=== PATIENT | female | born 1940 | race Caucasian/White ===

== ENCOUNTER 2021-05-13 16:49 | Inpatient (IN) ==
[2021-05-13 22:42] LABS: Basophils % 0.2 % (0.0-0.8); Hemoglobin 13.5 GM/DL (12.0-16.0); Immature Granulocytes % 0.5 %; Immature Granulocytes Absolute 0.02 #; Lymphocytes # 0.7 10*3/uL (1.4-4.0); Lymphocytes % 17.4 % (21.3-54.2); Mean Corpuscular HGB Conc 32.9 GM/DL (32-36); Mean Corpuscular Volume 90.3 FL (87-102); Mean Platelet Volume 13.3 FL (9.6-12.0); Neutrophils % 73.9 % (38.7-73.9); Platelet Count 84 T/CUMM (130-400); Red Blood Count 4.54 MC/CUMM (3.8-5.5); Red Cell Distribution Width 13.2 % (9.3-17.3); White Blood Count 4.1 T/CUMM (4-12)
[2021-05-13 23:12] LABS: Albumin 3.7 G/DL (3.4-5.0); Bilirubin,Total 0.4 MG/DL (0.20-1.00); Calcium 9.4 MG/DL (8.5-10.1); Osmolality,Calculated 293.8 MOS/KG (273-304); Potassium 3.4 MMOL/L (3.5-5.1); Total Protein 7.9 G/DL (6.4-8.2)
[2021-05-13 23:13] LABS: Bilirubin,Urine Negative (Negative); Blood, Urine Negative (Negative); Glucose,Urine (UA) Negative (Negative); Hyaline Casts,Urine 42 /LPF (0-3); Ketones,Urine Negative (Negative); Mucus,Urine Occasional /LPF (Occasional); Nitrite,Urine Negative (Negative); Protein,Urine 30 MG/DL; RBC,Urine 6 /HPF (0-4); Squamous Epithelial Cell,Urine Occasional /HPF (0-10); Urine Appearance CLOUDY (Clear); Urine Color Amber (Yellow); Urine Specific Gravity 1.017 (1.001-1.035); Urine Urobilinogen < 2.0 EU/DL (0.2-1.0)
[2021-05-13] MEDS ORDERED: SODIUM CHLORIDE 0.9% 1,000 ML IV STA (23:30)
[2021-05-13] MEDS ORDERED: DEXAMETHASONE 4 MG/1 ML VIAL IV STA (23:32)
[2021-05-13] MEDS ORDERED: cefTRIAXone 1,000 MG in SODIUM CHLORIDE 0.9% 100 ML IV STA (23:32)
[2021-05-13] MEDS ORDERED: ACETAMINOPHEN 500 MG TABLET PO STA (23:32)
[2021-05-13 23:51] LABS: Platelet Estimate Adequate
[2021-05-14] MEDS ORDERED: AZITHROMYCIN INJ 500 MG in SODIUM CHLORIDE 0.9% 250 ML IV ONE (02:04)
[2021-05-14] MEDS ORDERED: GLUCAGON 1 MG VIAL IM PRN (02:16)
[2021-05-14] MEDS ORDERED: ONDANSETRON 4 MG/2 ML VIAL IV PRN (02:16)
[2021-05-14] MEDS ORDERED: DEXTROSE 50% 25 GM/50 ML VIAL IV PRN (02:16)
[2021-05-14] MEDS ORDERED: ACETAMINOPHEN 325 MG TABLET PO PRN (02:16)
[2021-05-14] MEDS ORDERED: MAGNESIUM SULF RIDER 2 GM/50 ML PREMIX IV PRN (02:19)
[2021-05-14] MEDS ORDERED: MAGNESIUM SULF RIDER 4 GM/100 ML PREMIX IV PRN (02:19)
[2021-05-14] MEDS ORDERED: HEPARIN 5,000 UNIT/1 ML VIAL SUBCUT SCH (02:30)
[2021-05-14] MEDS ORDERED: hydrALAZINE 20 MG/1 ML VIAL IV PRN (03:05)
[2021-05-14] MEDS: SODIUM CHLORIDE 0.9% 1,000 ML IV SCH ×4 (03:20→18:25)
[2021-05-14] MEDS: ALBUTEROL INHALER 18 GM INH SCH ×4 (06:22→18:26)
[2021-05-14] MEDS: LEVOTHYROXINE 125 MCG TABLET PO SCH (06:22)
[2021-05-14 07:06] LABS: Hematocrit 35.7 VOL% (35.7-47.0); Hemoglobin 11.6 GM/DL (12.0-16.0); Immature Granulocytes % 0.6 %; Immature Granulocytes Absolute 0.02 #; Lymphocytes # 0.5 10*3/uL (1.4-4.0); Lymphocytes % 15.7 % (21.3-54.2); Mean Corpuscular HGB Conc 32.5 GM/DL (32-36); Mean Corpuscular Volume 90.8 FL (87-102); Mean Platelet Volume 13.4 FL (9.6-12.0); Monocytes % 3.6 % (1.7-12.7); Neutrophils % 80.1 % (38.7-73.9); Platelet Count 71 T/CUMM (130-400); Red Blood Count 3.93 MC/CUMM (3.8-5.5); Red Cell Distribution Width 13.3 % (9.3-17.3); White Blood Count 3.3 T/CUMM (4-12)
[2021-05-14 07:15] LABS: PT Patient Result 11.2 SECS (10.5-12.0)
[2021-05-14 07:21] LABS: Calcium 8.7 MG/DL (8.5-10.1); Osmolality,Calculated 303.3 MOS/KG (273-304); Potassium 3.3 MMOL/L (3.5-5.1)
[2021-05-14 07:24] LABS: Ferritin 915.1 ng/ml (8-252)
[2021-05-14 07:44] LABS: Band Neutrophils 23 % (0-10); Lymphocytes 13 % (20-55); Platelet Estimate Decreased; Segmented Neutrophils 59 % (50-85); Total Cells Counted 100
[2021-05-14 07:45] LABS: Anisocytosis Slight; Burr Cells Few
[2021-05-14] MEDS ORDERED: ACEBUTOLOL 200 MG PO SCH (09:00)
[2021-05-14] MEDS ORDERED: CETIRIZINE 10 MG TABLET PO SCH (09:00)
[2021-05-14] MEDS: CHOLECALCIFEROL 1,000 UNIT TABLET PO SCH (09:24)
[2021-05-14] MEDS: ZINC GLUCONATE 50 MG TABLET PO SCH (09:24)
[2021-05-14] MEDS: POTASSIUM CHLORIDE 20 MEQ TABLET PO PRN ×3 (09:24→15:38)
[2021-05-14] MEDS: FAMOTIDINE 20 MG TABLET PO SCH ×2 (09:24→22:10)
[2021-05-14] MEDS: ASCORBIC ACID 500 MG TABLET PO SCH ×2 (09:24→22:10)
[2021-05-14] MEDS: CETIRIZINE 10 MG TABLET PO SCH (09:24)
[2021-05-14] MEDS: amLODIPine 5 MG TABLET PO SCH (09:25)
[2021-05-14] MEDS: DEXAMETHASONE 4 MG/1 ML VIAL IV SCH (09:25)
[2021-05-14] MEDS ORDERED: guaiFENesin/CODEINE 5 ML LIQUID PO PRN (17:53)
[2021-05-14] MEDS: guaiFENesin 200 MG/10 ML UDCUP PO PRN (18:29)
[2021-05-14] MEDS: cefTRIAXone 1,000 MG in SODIUM CHLORIDE 0.9% 100 ML IV SCH (22:30)
[2021-05-15] MEDS: ALBUTEROL INHALER 18 GM INH SCH ×4 (01:30→18:21)
[2021-05-15] MEDS: SODIUM CHLORIDE 0.9% 1,000 ML IV SCH ×4 (03:25→17:34)
[2021-05-15 05:57] LABS: Calcium 8.8 MG/DL (8.5-10.1); Osmolality,Calculated 303.8 MOS/KG (273-304); Potassium 4.1 MMOL/L (3.5-5.1)
[2021-05-15 06:04] LABS: Hematocrit 36.9 VOL% (35.7-47.0); Hemoglobin 11.5 GM/DL (12.0-16.0); Immature Granulocytes % 0.8 %; Immature Granulocytes Absolute 0.04 #; Lymphocytes # 0.4 10*3/uL (1.4-4.0); Lymphocytes % 7.9 % (21.3-54.2); Mean Corpuscular HGB Conc 31.2 GM/DL (32-36); Mean Corpuscular Volume 95.3 FL (87-102); Mean Platelet Volume 13.2 FL (9.6-12.0); Monocytes % 7.2 % (1.7-12.7); Neutrophils % 84.1 % (38.7-73.9); Platelet Count 76 T/CUMM (130-400); Red Blood Count 3.87 MC/CUMM (3.8-5.5); Red Cell Distribution Width 13.3 % (9.3-17.3); White Blood Count 5.3 T/CUMM (4-12)
[2021-05-15] MEDS: LEVOTHYROXINE 125 MCG TABLET PO SCH (06:20)
[2021-05-15] MEDS: ASCORBIC ACID 500 MG TABLET PO SCH ×2 (08:29→21:00)
[2021-05-15] MEDS: AZITHROMYCIN 250 MG TABLET PO SCH (08:30)
[2021-05-15] MEDS: amLODIPine 5 MG TABLET PO SCH (08:30)
[2021-05-15] MEDS: CHOLECALCIFEROL 1,000 UNIT TABLET PO SCH (08:30)
[2021-05-15] MEDS: FAMOTIDINE 20 MG TABLET PO SCH ×2 (08:30→21:00)
[2021-05-15] MEDS: ACEBUTOLOL 200 MG PO SCH (08:31)
[2021-05-15] MEDS: DEXAMETHASONE 4 MG/1 ML VIAL IV SCH (08:31)
[2021-05-15] MEDS: CETIRIZINE 10 MG TABLET PO SCH (08:31)
[2021-05-15] MEDS: ZINC GLUCONATE 50 MG TABLET PO SCH (08:31)
[2021-05-15] MEDS: guaiFENesin 200 MG/10 ML UDCUP PO PRN ×2 (08:32→23:25)
[2021-05-15 09:30] LABS: Burr Cells Few; Platelet Estimate Decreased
[2021-05-15] MEDS: BENZONATATE 100 MG CAPSULE PO PRN ×2 (10:11→17:17)
[2021-05-15] MEDS: cefTRIAXone 1,000 MG in SODIUM CHLORIDE 0.9% 100 ML IV SCH (23:10)
[2021-05-16] MEDS: ALBUTEROL INHALER 18 GM INH SCH ×5 (00:41→23:14)
[2021-05-16 03:19] LABS: Hematocrit 35.4 VOL% (35.7-47.0); Hemoglobin 11.6 GM/DL (12.0-16.0); Immature Granulocytes Absolute 0.07 #; Lymphocytes # 0.3 10*3/uL (1.4-4.0); Mean Corpuscular HGB Conc 32.8 GM/DL (32-36); Mean Corpuscular Volume 91.5 FL (87-102); Mean Platelet Volume 12.6 FL (9.6-12.0); Monocytes % 5.1 % (1.7-12.7); Neutrophils % 89.9 % (38.7-73.9); Platelet Count 91 T/CUMM (130-400); Red Blood Count 3.87 MC/CUMM (3.8-5.5); Red Cell Distribution Width 13.4 % (9.3-17.3); White Blood Count 7.3 T/CUMM (4-12)
[2021-05-16] MEDS: guaiFENesin 200 MG/10 ML UDCUP PO PRN (03:28)
[2021-05-16 03:40] LABS: Calcium 9.2 MG/DL (8.5-10.1); Osmolality,Calculated 299.6 MOS/KG (273-304); Potassium 4.1 MMOL/L (3.5-5.1)
[2021-05-16 05:03] LABS: Lymphocytes 4 % (20-55); Segmented Neutrophils 91 % (50-85); Total Cells Counted 100
[2021-05-16 05:04] LABS: Platelet Estimate Adequate
[2021-05-16] MEDS: LEVOTHYROXINE 125 MCG TABLET PO SCH (06:00)
[2021-05-16] MEDS: SODIUM CHLORIDE 0.9% 1,000 ML IV SCH ×3 (06:03→12:21)
[2021-05-16] MEDS: AZITHROMYCIN 250 MG TABLET PO SCH (08:50)
[2021-05-16] MEDS: CETIRIZINE 10 MG TABLET PO SCH (08:51)
[2021-05-16] MEDS: amLODIPine 5 MG TABLET PO SCH (08:51)
[2021-05-16] MEDS: ASCORBIC ACID 500 MG TABLET PO SCH ×2 (08:51→21:02)
[2021-05-16] MEDS: CHOLECALCIFEROL 1,000 UNIT TABLET PO SCH (08:51)
[2021-05-16] MEDS: FAMOTIDINE 20 MG TABLET PO SCH ×2 (08:51→21:02)
[2021-05-16] MEDS: ZINC GLUCONATE 50 MG TABLET PO SCH (08:51)
[2021-05-16] MEDS: ACEBUTOLOL 200 MG PO SCH (08:52)
[2021-05-16] MEDS: DEXAMETHASONE 4 MG/1 ML VIAL IV SCH (08:52)
[2021-05-16] MEDS: BENZONATATE 100 MG CAPSULE PO PRN ×2 (08:55→18:16)
[2021-05-16] MEDS: ENOXAPARIN 40 MG/0.4 ML SYRINGE SUBCUT SCH (18:16)
[2021-05-16] MEDS: cefTRIAXone 1,000 MG in SODIUM CHLORIDE 0.9% 100 ML IV SCH (23:13)
[2021-05-17] MEDS: ALBUTEROL INHALER 18 GM INH SCH ×6 (03:00→22:01)
[2021-05-17] MEDS: LEVOTHYROXINE 125 MCG TABLET PO SCH (05:36)
[2021-05-17 06:19] LABS: Basophils % 0.1 % (0.0-0.8); Hematocrit 36.9 VOL% (35.7-47.0); Hemoglobin 12.4 GM/DL (12.0-16.0); Immature Granulocytes % 1.8 %; Immature Granulocytes Absolute 0.16 #; Lymphocytes # 0.3 10*3/uL (1.4-4.0); Lymphocytes % 3.7 % (21.3-54.2); Mean Corpuscular HGB Conc 33.6 GM/DL (32-36); Mean Corpuscular Volume 88.5 FL (87-102); Monocytes % 4.1 % (1.7-12.7); Neutrophils % 90.3 % (38.7-73.9); Platelet Count 108 T/CUMM (130-400); Red Blood Count 4.17 MC/CUMM (3.8-5.5); Red Cell Distribution Width 13.4 % (9.3-17.3); White Blood Count 9.1 T/CUMM (4-12)
[2021-05-17 06:41] LABS: Band Neutrophils 1 % (0-10); Hypochromasia Slight; Lymphocytes 3 % (20-55); Segmented Neutrophils 91 % (50-85); Total Cells Counted 100
[2021-05-17 06:42] LABS: Microcytosis 1+; Ovalocytes Slight; Platelet Estimate Decreased
[2021-05-17 06:48] LABS: Alanine Aminotransferase 33 U/L (13-56); Albumin 2.7 G/DL (3.4-5.0); Alkaline Phosphatase 77 U/L (45-117); Aspartate Amino Transferase 29 U/L (0-37); Bilirubin,Direct < 0.100 MG/DL (0.0-0.20); Bilirubin,Indirect 0.3 MG/DL (0.0-1.0); Total Protein 6.9 G/DL (6.4-8.2)
[2021-05-17 06:53] LABS: Calcium 9.3 MG/DL (8.5-10.1); Ferritin 1318.6 ng/ml (8-252); Osmolality,Calculated 294.6 MOS/KG (273-304); Potassium 3.4 MMOL/L (3.5-5.1)
[2021-05-17] MEDS: CETIRIZINE 10 MG TABLET PO SCH (08:42)
[2021-05-17] MEDS: ZINC GLUCONATE 50 MG TABLET PO SCH (08:42)
[2021-05-17] MEDS: CHOLECALCIFEROL 1,000 UNIT TABLET PO SCH (08:42)
[2021-05-17] MEDS: FAMOTIDINE 20 MG TABLET PO SCH ×2 (08:42→21:19)
[2021-05-17] MEDS: ASCORBIC ACID 500 MG TABLET PO SCH ×2 (08:42→21:19)
[2021-05-17] MEDS: AZITHROMYCIN 250 MG TABLET PO SCH (08:42)
[2021-05-17] MEDS: amLODIPine 5 MG TABLET PO SCH (08:42)
[2021-05-17] MEDS: ACEBUTOLOL 200 MG PO SCH (08:43)
[2021-05-17] MEDS: DEXAMETHASONE 4 MG/1 ML VIAL IV SCH (08:43)
[2021-05-17] MEDS ORDERED: REMDESIVIR 200 MG in SODIUM CHLORIDE 0.9% 210 ML IV ONE (12:00)
[2021-05-17] MEDS: ENOXAPARIN 40 MG/0.4 ML SYRINGE SUBCUT SCH (17:33)
[2021-05-17] MEDS: ALPRAZolam 0.25 MG TABLET PO PRN ×2 (17:33→21:19)
[2021-05-17] MEDS: guaiFENesin 200 MG/10 ML UDCUP PO PRN (21:19)
[2021-05-17] MEDS: cefTRIAXone 1,000 MG in SODIUM CHLORIDE 0.9% 100 ML IV SCH (22:01)
[2021-05-17] MEDS ORDERED: LORazepam 2 MG/1 ML VIAL IV ONE (22:17)
[2021-05-17] MEDS ORDERED: OLANZapine 10 MG VIAL IM ONE (23:33)
[2021-05-18] MEDS ORDERED: ETOMIDATE 20 MG/10 ML VIAL IV ONE ×2 (00:28→00:36)
[2021-05-18] MEDS ORDERED: VECURONIUM 10 MG VIAL IV ONE (00:28)
[2021-05-18] MEDS ORDERED: ROCURONIUM 100 MG/10 ML VIAL IV ONE (00:28)
[2021-05-18] MEDS ORDERED: MIDAZOLAM 10 MG/2 ML VIAL ONE (00:35)
[2021-05-18] MEDS ORDERED: MIDAZOLAM 10 MG/2 ML VIAL IM ONE (00:35)
[2021-05-18 03:00] LABS: ABG Base Excess -3.1 MMOL/L (-2.5-2.5); ABG HCO3 21.8 MMOL/L (20-26); ABG Oxygen Saturation 99.1 % (95-100); ABG PCO2 39.9 MM HG (35-48); ABG PH 7.353 (7.35-7.45); ABG TCO2 19.9 MMOL/L (23-27)
[2021-05-18 05:23] LABS: Basophils % 0.1 % (0.0-0.8); Hematocrit 33.3 VOL% (35.7-47.0); Hemoglobin 11.2 GM/DL (12.0-16.0); Immature Granulocytes % 2.1 %; Immature Granulocytes Absolute 0.17 #; Lymphocytes # 0.4 10*3/uL (1.4-4.0); Lymphocytes % 4.7 % (21.3-54.2); Mean Corpuscular HGB Conc 33.6 GM/DL (32-36); Mean Corpuscular Volume 89.5 FL (87-102); Mean Platelet Volume 11.4 FL (9.6-12.0); Monocytes % 3.9 % (1.7-12.7); Neutrophils % 89.2 % (38.7-73.9); Platelet Count 116 T/CUMM (130-400); Red Blood Count 3.72 MC/CUMM (3.8-5.5); Red Cell Distribution Width 13.6 % (9.3-17.3); White Blood Count 8.2 T/CUMM (4-12)
[2021-05-18 05:46] LABS: Lymphocytes 8 % (20-55); Segmented Neutrophils 88 % (50-85); Total Cells Counted 100
[2021-05-18 05:47] LABS: Hypochromasia 1+; Microcytosis 1+; Platelet Estimate Decreased
[2021-05-18 05:50] LABS: Calcium 8.7 MG/DL (8.5-10.1); Osmolality,Calculated 300.4 MOS/KG (273-304); Potassium 3.4 MMOL/L (3.5-5.1)
[2021-05-18] MEDS: LEVOTHYROXINE 125 MCG TABLET PO SCH (06:23)
[2021-05-18] MEDS: ALBUTEROL INHALER 18 GM INH SCH ×6 (07:08→22:32)
[2021-05-18] MEDS: amLODIPine 5 MG TABLET PO SCH ×2 (09:08→09:09)
[2021-05-18] MEDS: FAMOTIDINE 20 MG TABLET PO SCH ×2 (09:09→20:48)
[2021-05-18] MEDS: ASCORBIC ACID 500 MG TABLET PO SCH ×2 (09:09→20:48)
[2021-05-18] MEDS: ZINC GLUCONATE 50 MG TABLET PO SCH (09:09)
[2021-05-18] MEDS: AZITHROMYCIN 250 MG TABLET PO SCH (09:09)
[2021-05-18] MEDS: CETIRIZINE 10 MG TABLET PO SCH (09:09)
[2021-05-18] MEDS: ACEBUTOLOL 200 MG PO SCH (09:09)
[2021-05-18] MEDS: DEXAMETHASONE 4 MG/1 ML VIAL IV SCH (09:09)
[2021-05-18] MEDS: CHOLECALCIFEROL 1,000 UNIT TABLET PO SCH (09:09)
[2021-05-18] MEDS ORDERED: AZITHROMYCIN INJ 500 MG in SODIUM CHLORIDE 0.9% 250 ML IV ONE (09:48)
[2021-05-18] MEDS: POTASSIUM BICARB EFFERVESCENT 20 MEQ TAB.EFF PO PRN ×2 (11:04→14:00)
[2021-05-18] MEDS: REMDESIVIR 100 MG in SODIUM CHLORIDE 0.9% 100 ML IV SCH (11:04)
[2021-05-18] MEDS: ENOXAPARIN 60 MG/0.6 ML SYRINGE SUBCUT SCH ×2 (11:04→21:09)
[2021-05-18] MEDS: MIDAZOLAM 100 MG in SODIUM CHLORIDE 0.9% 80 ML IV PRN ×2 (13:26→23:56)
[2021-05-18] MEDS ORDERED: ALPRAZolam 0.5 MG TABLET PO PRN (16:37)
[2021-05-18] MEDS: INSULIN LISPRO 100 UNIT/ML SUBCUT SCH ×2 (17:56→23:57)
[2021-05-18] MEDS: cefTRIAXone 1,000 MG in SODIUM CHLORIDE 0.9% 100 ML IV SCH (22:28)
[2021-05-19] MEDS: ALBUTEROL INHALER 18 GM INH SCH ×6 (03:06→23:03)
[2021-05-19 04:39] LABS: Basophils % 0.3 % (0.0-0.8); Hemoglobin 10.9 GM/DL (12.0-16.0); Immature Granulocytes % 2.2 %; Immature Granulocytes Absolute 0.17 #; Lymphocytes # 0.5 10*3/uL (1.4-4.0); Lymphocytes % 5.7 % (21.3-54.2); Mean Corpuscular HGB Conc 32.1 GM/DL (32-36); Mean Corpuscular Volume 92.1 FL (87-102); Mean Platelet Volume 11.9 FL (9.6-12.0); Monocytes % 3.6 % (1.7-12.7); Neutrophils % 88.2 % (38.7-73.9); Platelet Count 111 T/CUMM (130-400); Red Blood Count 3.69 MC/CUMM (3.8-5.5); White Blood Count 7.9 T/CUMM (4-12)
[2021-05-19 05:00] LABS: Calcium 8.8 MG/DL (8.5-10.1); Ferritin 1375.2 ng/ml (8-252); Potassium 3.6 MMOL/L (3.5-5.1)
[2021-05-19] MEDS: INSULIN LISPRO 100 UNIT/ML SUBCUT SCH ×3 (05:24→18:36)
[2021-05-19 05:25] LABS: ABG Base Excess -0.7 MMOL/L (-2.5-2.5); ABG HCO3 23.9 MMOL/L (20-26); ABG Oxygen Saturation 98.6 % (95-100); ABG PCO2 42.8 MM HG (35-48); ABG PH 7.369 (7.35-7.45); ABG TCO2 22.3 MMOL/L (23-27)
[2021-05-19] MEDS: LEVOTHYROXINE 125 MCG TABLET PO SCH (06:06)
[2021-05-19] MEDS: ASCORBIC ACID 500 MG TABLET PO SCH ×2 (08:17→20:43)
[2021-05-19] MEDS: DEXAMETHASONE 4 MG/1 ML VIAL IV SCH (08:17)
[2021-05-19] MEDS: ZINC GLUCONATE 50 MG TABLET PO SCH (08:18)
[2021-05-19] MEDS: CHOLECALCIFEROL 1,000 UNIT TABLET PO SCH (08:18)
[2021-05-19] MEDS: ACEBUTOLOL 200 MG PO SCH (08:20)
[2021-05-19] MEDS: amLODIPine 5 MG TABLET PO SCH (08:21)
[2021-05-19] MEDS: CETIRIZINE 10 MG TABLET PO SCH (08:21)
[2021-05-19] MEDS: REMDESIVIR 100 MG in SODIUM CHLORIDE 0.9% 100 ML IV SCH (08:23)
[2021-05-19] MEDS: FAMOTIDINE 20 MG TABLET PO SCH ×2 (08:25→20:43)
[2021-05-19] MEDS: ENOXAPARIN 60 MG/0.6 ML SYRINGE SUBCUT SCH ×2 (09:51→21:11)
[2021-05-19] MEDS ORDERED: AZITHROMYCIN INJ 250 MG in SODIUM CHLORIDE 0.9% 250 ML IV SCH (10:00)
[2021-05-19] MEDS ORDERED: FUROSEMIDE 40 MG/4 ML VIAL IV ONE (10:29)
[2021-05-19] MEDS: cefTRIAXone 1,000 MG in SODIUM CHLORIDE 0.9% 100 ML IV SCH (23:03)
[2021-05-20] MEDS: INSULIN LISPRO 100 UNIT/ML SUBCUT SCH ×5 (00:28→23:54)
[2021-05-20] MEDS: ALBUTEROL INHALER 18 GM INH SCH ×6 (03:15→23:58)
[2021-05-20 04:40] LABS: ABG Base Excess 0.2 MMOL/L (-2.5-2.5); ABG HCO3 24.1 MMOL/L (20-26); ABG Oxygen Saturation 95.8 % (95-100); ABG PCO2 36.6 MM HG (35-48); ABG PH 7.436 (7.35-7.45); ABG PO2 80.4 MM HG (80-95); ABG TCO2 25.2 MMOL/L (23-27)
[2021-05-20] MEDS: LEVOTHYROXINE 125 MCG TABLET PO SCH (05:50)
[2021-05-20 06:28] LABS: Basophils % 0.1 % (0.0-0.8); Hematocrit 33.6 VOL% (35.7-47.0); Hemoglobin 11.1 GM/DL (12.0-16.0); Immature Granulocytes % 4.8 %; Immature Granulocytes Absolute 0.37 #; Lymphocytes # 0.4 10*3/uL (1.4-4.0); Lymphocytes % 4.9 % (21.3-54.2); Mean Corpuscular Volume 89.6 FL (87-102); Monocytes % 3.3 % (1.7-12.7); Neutrophils % 86.9 % (38.7-73.9); Platelet Count 122 T/CUMM (130-400); Red Blood Count 3.75 MC/CUMM (3.8-5.5); Red Cell Distribution Width 13.7 % (9.3-17.3); White Blood Count 7.8 T/CUMM (4-12)
[2021-05-20 06:46] LABS: Band Neutrophils 1 % (0-10); Hypochromasia Slight; Lymphocytes 3 % (20-55); Microcytosis Slight; Segmented Neutrophils 94 % (50-85); Total Cells Counted 100
[2021-05-20 06:51] LABS: Calcium 8.4 MG/DL (8.5-10.1); Ferritin 976.1 ng/ml (8-252); Osmolality,Calculated 308.4 MOS/KG (273-304); Potassium 3.5 MMOL/L (3.5-5.1)
[2021-05-20] MEDS: CETIRIZINE 10 MG TABLET PO SCH (08:04)
[2021-05-20] MEDS: ASCORBIC ACID 500 MG TABLET PO SCH ×2 (08:04→20:52)
[2021-05-20] MEDS: ZINC GLUCONATE 50 MG TABLET PO SCH (08:04)
[2021-05-20] MEDS: DEXAMETHASONE 4 MG/1 ML VIAL IV SCH (08:04)
[2021-05-20] MEDS: FAMOTIDINE 20 MG TABLET PO SCH ×2 (08:04→20:52)
[2021-05-20] MEDS: CHOLECALCIFEROL 1,000 UNIT TABLET PO SCH (08:05)
[2021-05-20] MEDS: ENOXAPARIN 60 MG/0.6 ML SYRINGE SUBCUT SCH ×2 (10:04→21:40)
[2021-05-20] MEDS: REMDESIVIR 100 MG in SODIUM CHLORIDE 0.9% 100 ML IV SCH (10:54)
[2021-05-20] MEDS: ACEBUTOLOL 200 MG PO SCH (11:00)
[2021-05-20] MEDS: amLODIPine 5 MG TABLET PO SCH (11:00)
[2021-05-20] MEDS: MIDAZOLAM 100 MG in SODIUM CHLORIDE 0.9% 80 ML IV PRN (19:43)
[2021-05-20] MEDS: cefTRIAXone 1,000 MG in SODIUM CHLORIDE 0.9% 100 ML IV SCH (23:54)
[2021-05-21] MEDS: ALBUTEROL INHALER 18 GM INH SCH ×6 (03:27→23:44)
[2021-05-21 04:41] LABS: ABG Base Excess 0.6 MMOL/L (-2.5-2.5); ABG HCO3 24.9 MMOL/L (20-26); ABG Oxygen Saturation 97.1 % (95-100); ABG PCO2 40.6 MM HG (35-48); ABG PH 7.403 (7.35-7.45); ABG PO2 89.4 MM HG (80-95); ABG TCO2 22.6 MMOL/L (23-27)
[2021-05-21 05:27] LABS: Basophils % 0.2 % (0.0-0.8); Hematocrit 34.5 VOL% (35.7-47.0); Hemoglobin 11.3 GM/DL (12.0-16.0); Immature Granulocytes % 6.9 %; Immature Granulocytes Absolute 0.59 #; Lymphocytes # 0.5 10*3/uL (1.4-4.0); Lymphocytes % 5.7 % (21.3-54.2); Mean Corpuscular HGB Conc 32.8 GM/DL (32-36); Mean Corpuscular Volume 91.3 FL (87-102); Mean Platelet Volume 12.3 FL (9.6-12.0); Monocytes % 5.2 % (1.7-12.7); Platelet Count 144 T/CUMM (130-400); Red Blood Count 3.78 MC/CUMM (3.8-5.5); Red Cell Distribution Width 13.6 % (9.3-17.3); White Blood Count 8.5 T/CUMM (4-12)
[2021-05-21 05:50] LABS: Calcium 8.3 MG/DL (8.5-10.1); Ferritin 801.5 ng/ml (8-252); Potassium 3.8 MMOL/L (3.5-5.1)
[2021-05-21] MEDS: LEVOTHYROXINE 125 MCG TABLET PO SCH (06:04)
[2021-05-21] MEDS: INSULIN LISPRO 100 UNIT/ML SUBCUT SCH ×4 (06:04→23:45)
[2021-05-21 06:10] LABS: Band Neutrophils 2 % (0-10); Hypochromasia Slight; Lymphocytes 3 % (20-55); Microcytosis Slight; Platelet Estimate Adequate; Segmented Neutrophils 85 % (50-85); Total Cells Counted 100
[2021-05-21] MEDS: CETIRIZINE 10 MG TABLET PO SCH (08:27)
[2021-05-21] MEDS: FAMOTIDINE 20 MG TABLET PO SCH ×2 (08:27→21:11)
[2021-05-21] MEDS: ASCORBIC ACID 500 MG TABLET PO SCH ×2 (08:27→21:11)
[2021-05-21] MEDS: ZINC GLUCONATE 50 MG TABLET PO SCH (08:27)
[2021-05-21] MEDS: CHOLECALCIFEROL 1,000 UNIT TABLET PO SCH (08:27)
[2021-05-21] MEDS: amLODIPine 5 MG TABLET PO SCH (08:27)
[2021-05-21] MEDS: DEXAMETHASONE 4 MG/1 ML VIAL IV SCH (08:28)
[2021-05-21] MEDS: ACEBUTOLOL 200 MG PO SCH (08:29)
[2021-05-21] MEDS: REMDESIVIR 100 MG in SODIUM CHLORIDE 0.9% 100 ML IV SCH (09:17)
[2021-05-21] MEDS: MIDAZOLAM 100 MG in SODIUM CHLORIDE 0.9% 80 ML IV PRN (09:46)
[2021-05-21] MEDS: ENOXAPARIN 60 MG/0.6 ML SYRINGE SUBCUT SCH ×2 (10:12→21:11)
[2021-05-21] MEDS: cefTRIAXone 1,000 MG in SODIUM CHLORIDE 0.9% 100 ML IV SCH (23:44)
[2021-05-22] MEDS: MIDAZOLAM 100 MG in SODIUM CHLORIDE 0.9% 80 ML IV PRN ×2 (00:01→15:15)
[2021-05-22] MEDS: ALBUTEROL INHALER 18 GM INH SCH ×6 (03:18→22:26)
[2021-05-22 04:07] LABS: ABG Base Excess 0.4 MMOL/L (-2.5-2.5); ABG HCO3 24.8 MMOL/L (20-26); ABG Oxygen Saturation 96.8 % (95-100); ABG PCO2 39.2 MM HG (35-48); ABG PH 7.411 (7.35-7.45); ABG PO2 84.7 MM HG (80-95); ABG TCO2 22.3 MMOL/L (23-27)
[2021-05-22] MEDS: INSULIN LISPRO 100 UNIT/ML SUBCUT SCH ×3 (05:39→18:05)
[2021-05-22] MEDS: LEVOTHYROXINE 125 MCG TABLET PO SCH (05:40)
[2021-05-22 06:43] LABS: Basophils # 0.1 10*3/uL (0.0-0.2); Basophils % 0.7 % (0.0-0.8); Hematocrit 34.9 VOL% (35.7-47.0); Hemoglobin 11.6 GM/DL (12.0-16.0); Immature Granulocytes % 9.9 %; Immature Granulocytes Absolute 1.03 #; Lymphocytes # 0.5 10*3/uL (1.4-4.0); Mean Corpuscular HGB Conc 33.2 GM/DL (32-36); Mean Corpuscular Volume 90.9 FL (87-102); Mean Platelet Volume 12.2 FL (9.6-12.0); Monocytes % 6.7 % (1.7-12.7); Neutrophils % 77.7 % (38.7-73.9); Platelet Count 139 T/CUMM (130-400); Red Blood Count 3.84 MC/CUMM (3.8-5.5); Red Cell Distribution Width 13.6 % (9.3-17.3); White Blood Count 10.4 T/CUMM (4-12)
[2021-05-22 07:00] LABS: Calcium 8.6 MG/DL (8.5-10.1); Ferritin 721.1 ng/ml (8-252); Osmolality,Calculated 298.1 MOS/KG (273-304); Potassium 4.4 MMOL/L (3.5-5.1)
[2021-05-22 07:02] LABS: Band Neutrophils 1 % (0-10); Lymphocytes 10 % (20-55); Segmented Neutrophils 83 % (50-85); Total Cells Counted 100
[2021-05-22 07:03] LABS: Hypochromasia Slight; Microcytosis 1+; Ovalocytes Slight; Platelet Estimate Adequate
[2021-05-22] MEDS: FAMOTIDINE 20 MG TABLET PO SCH ×2 (08:38→20:28)
[2021-05-22] MEDS: CHOLECALCIFEROL 1,000 UNIT TABLET PO SCH (08:38)
[2021-05-22] MEDS: amLODIPine 5 MG TABLET PO SCH (08:38)
[2021-05-22] MEDS: CETIRIZINE 10 MG TABLET PO SCH (08:38)
[2021-05-22] MEDS: ZINC GLUCONATE 50 MG TABLET PO SCH (08:38)
[2021-05-22] MEDS: ASCORBIC ACID 500 MG TABLET PO SCH ×2 (08:38→20:28)
[2021-05-22] MEDS: ENOXAPARIN 60 MG/0.6 ML SYRINGE SUBCUT SCH ×3 (08:39→22:27)
[2021-05-22] MEDS: ACEBUTOLOL 200 MG PO SCH (08:39)
[2021-05-22] MEDS: DEXAMETHASONE 4 MG/1 ML VIAL IV SCH (08:39)
[2021-05-23] MEDS: INSULIN LISPRO 100 UNIT/ML SUBCUT SCH ×4 (00:03→17:49)
[2021-05-23] MEDS: ALBUTEROL INHALER 18 GM INH SCH ×6 (03:34→23:42)
[2021-05-23 03:42] LABS: Basophils # 0.1 10*3/uL (0.0-0.2); Basophils % 0.5 % (0.0-0.8); Hematocrit 31.5 VOL% (35.7-47.0); Hemoglobin 10.6 GM/DL (12.0-16.0); Immature Granulocytes Absolute 1.15 #; Lymphocytes # 0.5 10*3/uL (1.4-4.0); Lymphocytes % 4.1 % (21.3-54.2); Mean Corpuscular HGB Conc 33.7 GM/DL (32-36); Mean Corpuscular Volume 90.5 FL (87-102); Monocytes % 6.6 % (1.7-12.7); Neutrophils % 78.8 % (38.7-73.9); Platelet Count 142 T/CUMM (130-400); Red Blood Count 3.48 MC/CUMM (3.8-5.5); Red Cell Distribution Width 13.5 % (9.3-17.3); White Blood Count 11.5 T/CUMM (4-12)
[2021-05-23 03:55] LABS: Calcium 8.6 MG/DL (8.5-10.1); Osmolality,Calculated 298.3 MOS/KG (273-304); Potassium 4.7 MMOL/L (3.5-5.1)
[2021-05-23 04:15] LABS: ABG Oxygen Saturation 98.6 % (95-100); ABG PCO2 36.6 MM HG (35-48); ABG PH 7.434 (7.35-7.45); ABG PO2 145.9 MM HG (80-95); ABG TCO2 25.1 MMOL/L (23-27)
[2021-05-23 04:29] LABS: Band Neutrophils 4 % (0-10); Hypochromasia Slight; Lymphocytes 3 % (20-55); Microcytosis Slight; Platelet Estimate Adequate; Segmented Neutrophils 86 % (50-85); Total Cells Counted 100
[2021-05-23] MEDS: MIDAZOLAM 100 MG in SODIUM CHLORIDE 0.9% 80 ML IV PRN (04:44)
[2021-05-23] MEDS: LEVOTHYROXINE 125 MCG TABLET PO SCH (05:58)
[2021-05-23] MEDS: CETIRIZINE 10 MG TABLET PO SCH (09:17)
[2021-05-23] MEDS: FAMOTIDINE 20 MG TABLET PO SCH ×2 (09:17→20:25)
[2021-05-23] MEDS: amLODIPine 5 MG TABLET PO SCH (09:18)
[2021-05-23] MEDS: CHOLECALCIFEROL 1,000 UNIT TABLET PO SCH (09:18)
[2021-05-23] MEDS: ASCORBIC ACID 500 MG TABLET PO SCH ×2 (09:18→20:26)
[2021-05-23] MEDS: ZINC GLUCONATE 50 MG TABLET PO SCH (09:18)
[2021-05-23] MEDS: DEXAMETHASONE 4 MG/1 ML VIAL IV SCH (09:18)
[2021-05-23] MEDS: ACEBUTOLOL 200 MG PO SCH (09:19)
[2021-05-23] MEDS: ENOXAPARIN 60 MG/0.6 ML SYRINGE SUBCUT SCH ×2 (10:13→22:42)
[2021-05-24] MEDS: INSULIN LISPRO 100 UNIT/ML SUBCUT SCH ×4 (00:33→17:33)
[2021-05-24] MEDS: ALBUTEROL INHALER 18 GM INH SCH ×6 (03:02→23:02)
[2021-05-24 03:53] LABS: Basophils # 0.1 10*3/uL (0.0-0.2); Basophils % 0.3 % (0.0-0.8); Eosinophils % 0.1 % (0.00-10.9); Hematocrit 33.4 VOL% (35.7-47.0); Hemoglobin 10.8 GM/DL (12.0-16.0); Immature Granulocytes % 11.5 %; Immature Granulocytes Absolute 1.69 #; Lymphocytes # 0.6 10*3/uL (1.4-4.0); Lymphocytes % 4.3 % (21.3-54.2); Mean Corpuscular HGB Conc 32.3 GM/DL (32-36); Mean Platelet Volume 11.8 FL (9.6-12.0); Monocytes % 6.8 % (1.7-12.7); Platelet Count 143 T/CUMM (130-400); Red Blood Count 3.67 MC/CUMM (3.8-5.5); Red Cell Distribution Width 13.3 % (9.3-17.3); White Blood Count 14.7 T/CUMM (4-12)
[2021-05-24 04:12] LABS: Hypochromasia Slight; Lymphocytes 4 % (20-55); Microcytosis Slight; Platelet Estimate Adequate; Segmented Neutrophils 94 % (50-85); Total Cells Counted 100
[2021-05-24 04:19] LABS: Alanine Aminotransferase 28 U/L (13-56); Albumin 1.9 G/DL (3.4-5.0); Alkaline Phosphatase 72 U/L (45-117); Aspartate Amino Transferase 12 U/L (0-37); Bilirubin,Total < 0.39 MG/DL (0.20-1.00); Blood Urea Nitrogen 60 MG/DL (7-18); Calcium 8.8 MG/DL (8.5-10.1); Carbon Dioxide 23 MMOL/L (21-32); Estimated Glom Filtration Rate 91 ML/MIN; Ferritin 756.3 ng/ml (8-252); Glucose 177 MG/DL (74-106); Osmolality,Calculated 293.8 MOS/KG (273-304); Potassium 4.9 MMOL/L (3.5-5.1); Sodium 137 MMOL/L (136-145); Total Protein 5.1 G/DL (6.4-8.2)
[2021-05-24 05:21] LABS: ABG Base Excess 0.5 MMOL/L (-2.5-2.5); ABG HCO3 24.9 MMOL/L (20-26); ABG Oxygen Saturation 99.7 % (95-100); ABG PCO2 35.1 MM HG (35-48); ABG PH 7.445 (7.35-7.45); ABG TCO2 21.6 MMOL/L (23-27)
[2021-05-24] MEDS: LEVOTHYROXINE 125 MCG TABLET PO SCH (06:07)
[2021-05-24] MEDS: CHOLECALCIFEROL 1,000 UNIT TABLET PO SCH (08:23)
[2021-05-24] MEDS: FAMOTIDINE 20 MG TABLET PO SCH ×2 (08:23→20:27)
[2021-05-24] MEDS: amLODIPine 5 MG TABLET PO SCH (08:23)
[2021-05-24] MEDS: CETIRIZINE 10 MG TABLET PO SCH (08:23)
[2021-05-24] MEDS: ZINC GLUCONATE 50 MG TABLET PO SCH (08:23)
[2021-05-24] MEDS: ASCORBIC ACID 500 MG TABLET PO SCH ×2 (08:23→20:27)
[2021-05-24] MEDS: ACEBUTOLOL 200 MG PO SCH (10:20)
[2021-05-24] MEDS: ENOXAPARIN 60 MG/0.6 ML SYRINGE SUBCUT SCH (10:21)
[2021-05-24] MEDS: DEXMEDETOMIDINE 400 MCG in SODIUM CHLORIDE 0.9% 96 ML IV PRN ×2 (10:25→18:58)
[2021-05-25] MEDS: ENOXAPARIN 60 MG/0.6 ML SYRINGE SUBCUT SCH ×3 (00:39→21:09)
[2021-05-25] MEDS: INSULIN LISPRO 100 UNIT/ML SUBCUT SCH ×4 (01:00→18:52)
[2021-05-25] MEDS: ALBUTEROL INHALER 18 GM INH SCH ×6 (03:03→23:32)
[2021-05-25] MEDS: DEXMEDETOMIDINE 400 MCG in SODIUM CHLORIDE 0.9% 96 ML IV PRN (04:50)
[2021-05-25 04:56] LABS: Osmolality,Calculated 274.7 MOS/KG (273-304)
[2021-05-25 05:08] LABS: Ferritin 404.8 ng/ml (8-252)
[2021-05-25 05:13] LABS: ABG Base Excess 1.8 MMOL/L (-2.5-2.5); ABG Oxygen Saturation 99.4 % (95-100); ABG PCO2 38.5 MM HG (35-48); ABG PH 7.436 (7.35-7.45); ABG TCO2 23.2 MMOL/L (23-27)
[2021-05-25] MEDS: LEVOTHYROXINE 125 MCG TABLET PO SCH (06:11)
[2021-05-25 07:48] LABS: Basophils % 0.3 % (0.0-0.8); Eosinophils # 0.1 10*3/uL (0.0-0.87); Eosinophils % 0.5 % (0.00-10.9); Hematocrit 35.8 VOL% (35.7-47.0); Immature Granulocytes % 7.8 %; Immature Granulocytes Absolute 0.93 #; Lymphocytes # 0.7 10*3/uL (1.4-4.0); Lymphocytes % 6.2 % (21.3-54.2); Mean Corpuscular HGB Conc 30.7 GM/DL (32-36); Mean Platelet Volume 12.4 FL (9.6-12.0); Monocytes % 8.3 % (1.7-12.7); Neutrophils % 76.9 % (38.7-73.9); Platelet Count 129 T/CUMM (130-400); Red Blood Count 3.77 MC/CUMM (3.8-5.5); Red Cell Distribution Width 13.5 % (9.3-17.3); White Blood Count 11.9 T/CUMM (4-12)
[2021-05-25] MEDS ORDERED: DEXAMETHASONE 4 MG/1 ML VIAL IV SCH (08:00)
[2021-05-25 08:07] LABS: Band Neutrophils 1 % (0-10); Eosinophils 1 % (0-10); Lymphocytes 9 % (20-55); Segmented Neutrophils 82 % (50-85); Total Cells Counted 100
[2021-05-25 08:08] LABS: Hypochromasia Slight; Microcytosis Slight
[2021-05-25] MEDS: FAMOTIDINE 20 MG TABLET PO SCH ×2 (09:10→21:03)
[2021-05-25] MEDS: ZINC GLUCONATE 50 MG TABLET PO SCH (09:10)
[2021-05-25] MEDS: CHOLECALCIFEROL 1,000 UNIT TABLET PO SCH (09:10)
[2021-05-25] MEDS: amLODIPine 5 MG TABLET PO SCH (09:10)
[2021-05-25] MEDS: ASCORBIC ACID 500 MG TABLET PO SCH ×2 (09:10→21:03)
[2021-05-25] MEDS: CETIRIZINE 10 MG TABLET PO SCH (09:10)
[2021-05-25] MEDS ORDERED: methylPREDNISolone SOD SUC 125 MG/2 ML VIAL IV ONE (09:59)
[2021-05-25] MEDS ORDERED: RACEPINEPHRINE 0.5 ML NEB RESP TX ONE (10:00)
[2021-05-25] MEDS ORDERED: methylPREDNISolone SOD SUC 125 MG/2 ML VIAL ONE (10:02)
[2021-05-25 11:39] LABS: ABG Base Excess 0.3 MMOL/L (-2.5-2.5); ABG HCO3 24.4 MMOL/L (20-26); ABG Oxygen Saturation 97.7 % (95-100); ABG PCO2 37.8 MM HG (35-48); ABG PH 7.428 (7.35-7.45); ABG PO2 107.5 MM HG (80-95); ABG TCO2 25.6 MMOL/L (23-27)
[2021-05-25] MEDS: ACEBUTOLOL 200 MG PO SCH (13:04)
[2021-05-25] MEDS: FLUTICASONE 220 MCG/PUFF INHALER 12 GM INH SCH ×2 (14:52→21:03)
[2021-05-25] MEDS: PANTOPRAZOLE 40 MG VIAL IV SCH (14:53)
[2021-05-25] MEDS: methylPREDNISolone SOD SUC 40 MG/1 ML VIAL IV SCH (18:52)
[2021-05-26] MEDS: INSULIN LISPRO 100 UNIT/ML SUBCUT SCH ×5 (00:35→21:48)
[2021-05-26] MEDS: ALBUTEROL INHALER 18 GM INH SCH ×5 (03:58→20:00)
[2021-05-26 04:50] LABS: ABG Base Excess 3.3 MMOL/L (-2.5-2.5); ABG HCO3 26.8 MMOL/L (20-26); ABG Oxygen Saturation 98.4 % (95-100); ABG PCO2 37.1 MM HG (35-48); ABG PH 7.477 (7.35-7.45); ABG PO2 130.3 MM HG (80-95)
[2021-05-26 04:59] LABS: Basophils # 0.1 10*3/uL (0.0-0.2); Basophils % 0.5 % (0.0-0.8); Hematocrit 36.4 VOL% (35.7-47.0); Hemoglobin 11.7 GM/DL (12.0-16.0); Immature Granulocytes % 5.1 %; Immature Granulocytes Absolute 0.87 #; Lymphocytes # 0.6 10*3/uL (1.4-4.0); Lymphocytes % 3.3 % (21.3-54.2); Mean Corpuscular HGB Conc 32.1 GM/DL (32-36); Mean Corpuscular Volume 93.1 FL (87-102); Mean Platelet Volume 11.8 FL (9.6-12.0); Monocytes % 2.8 % (1.7-12.7); Neutrophils % 88.3 % (38.7-73.9); Platelet Count 115 T/CUMM (130-400); Red Blood Count 3.91 MC/CUMM (3.8-5.5); Red Cell Distribution Width 13.6 % (9.3-17.3); White Blood Count 16.9 T/CUMM (4-12)
[2021-05-26 05:13] LABS: Calcium 9.2 MG/DL (8.5-10.1); Osmolality,Calculated 300.8 MOS/KG (273-304); Potassium 5.3 MMOL/L (3.5-5.1)
[2021-05-26] MEDS: methylPREDNISolone SOD SUC 40 MG/1 ML VIAL IV SCH ×2 (05:21→18:40)
[2021-05-26 05:23] LABS: Hypochromasia Slight; Lymphocytes 3 % (20-55); Microcytosis Slight; Platelet Estimate Decreased; Segmented Neutrophils 97 % (50-85); Total Cells Counted 100
[2021-05-26] MEDS: LEVOTHYROXINE 125 MCG TABLET PO SCH (06:50)
[2021-05-26] MEDS: PANTOPRAZOLE 40 MG VIAL IV SCH (08:03)
[2021-05-26] MEDS ORDERED: SODIUM POLYSTYRENE SULFATE 15 GM/60 ML BOTTLE PO ONE (08:50)
[2021-05-26] MEDS: ACEBUTOLOL 200 MG PO SCH (11:33)
[2021-05-26] MEDS: FLUTICASONE 220 MCG/PUFF INHALER 12 GM INH SCH ×2 (11:33→21:03)
[2021-05-26] MEDS: ENOXAPARIN 60 MG/0.6 ML SYRINGE SUBCUT SCH ×2 (11:34→21:50)
[2021-05-26] MEDS: CHOLECALCIFEROL 1,000 UNIT TABLET PO SCH (11:35)
[2021-05-26] MEDS: amLODIPine 5 MG TABLET PO SCH (11:35)
[2021-05-26] MEDS: FAMOTIDINE 20 MG TABLET PO SCH ×2 (11:35→21:50)
[2021-05-26] MEDS: ASCORBIC ACID 500 MG TABLET PO SCH ×2 (11:35→21:50)
[2021-05-26] MEDS: ZINC GLUCONATE 50 MG TABLET PO SCH (11:36)
[2021-05-26] MEDS: CETIRIZINE 10 MG TABLET PO SCH (11:36)
[2021-05-27] MEDS: ALBUTEROL INHALER 18 GM INH SCH ×6 (00:07→20:05)
[2021-05-27] MEDS: methylPREDNISolone SOD SUC 40 MG/1 ML VIAL IV SCH (04:42)
[2021-05-27 06:24] LABS: Basophils % 0.3 % (0.0-0.8); Hematocrit 37.7 VOL% (35.7-47.0); Hemoglobin 12.1 GM/DL (12.0-16.0); Immature Granulocytes % 2.6 %; Immature Granulocytes Absolute 0.29 #; Lymphocytes # 0.5 10*3/uL (1.4-4.0); Lymphocytes % 4.2 % (21.3-54.2); Mean Corpuscular HGB Conc 32.1 GM/DL (32-36); Mean Corpuscular Volume 93.1 FL (87-102); Mean Platelet Volume 11.9 FL (9.6-12.0); Monocytes % 6.9 % (1.7-12.7); Platelet Count 128 T/CUMM (130-400); Red Blood Count 4.05 MC/CUMM (3.8-5.5); Red Cell Distribution Width 13.6 % (9.3-17.3); White Blood Count 11.3 T/CUMM (4-12)
[2021-05-27 06:44] LABS: Lymphocytes 3 % (20-55); Platelet Estimate Normal; Segmented Neutrophils 92 % (50-85); Total Cells Counted 100
[2021-05-27 06:45] LABS: Hypochromasia Slight; Microcytosis Slight
[2021-05-27 06:48] LABS: Calcium 9.3 MG/DL (8.5-10.1); Ferritin 1455.8 ng/ml (8-252); Osmolality,Calculated 309.3 MOS/KG (273-304); Potassium 3.8 MMOL/L (3.5-5.1)
[2021-05-27] MEDS: LEVOTHYROXINE 125 MCG TABLET PO SCH (06:59)
[2021-05-27] MEDS: INSULIN LISPRO 100 UNIT/ML SUBCUT SCH ×4 (08:11→23:29)
[2021-05-27] MEDS: ZINC GLUCONATE 50 MG TABLET PO SCH (09:03)
[2021-05-27] MEDS: CHOLECALCIFEROL 1,000 UNIT TABLET PO SCH (09:03)
[2021-05-27] MEDS: ASCORBIC ACID 500 MG TABLET PO SCH ×2 (09:03→21:50)
[2021-05-27] MEDS: amLODIPine 5 MG TABLET PO SCH (09:03)
[2021-05-27] MEDS: CETIRIZINE 10 MG TABLET PO SCH (09:03)
[2021-05-27] MEDS: ENOXAPARIN 60 MG/0.6 ML SYRINGE SUBCUT SCH ×2 (09:04→21:55)
[2021-05-27] MEDS: FLUTICASONE 220 MCG/PUFF INHALER 12 GM INH SCH ×2 (09:20→23:30)
[2021-05-27] MEDS: FAMOTIDINE 20 MG TABLET PO SCH ×2 (09:40→21:50)
[2021-05-27] MEDS: DEXTROSE 5% 1,000 ML IV SCH (14:03)
[2021-05-28] MEDS: ALBUTEROL INHALER 18 GM INH SCH ×7 (00:15→22:30)
[2021-05-28] MEDS: DEXTROSE 5% 1,000 ML IV SCH ×2 (03:30→16:45)
[2021-05-28] MEDS: LEVOTHYROXINE 125 MCG TABLET PO SCH (06:15)
[2021-05-28 06:48] LABS: Basophils % 0.1 % (0.0-0.8); Hematocrit 36.1 VOL% (35.7-47.0); Hemoglobin 11.2 GM/DL (12.0-16.0); Immature Granulocytes % 0.9 %; Immature Granulocytes Absolute 0.08 #; Lymphocytes # 0.8 10*3/uL (1.4-4.0); Lymphocytes % 9.6 % (21.3-54.2); Mean Platelet Volume 11.6 FL (9.6-12.0); Monocytes % 12.8 % (1.7-12.7); Neutrophils % 76.6 % (38.7-73.9); Platelet Count 119 T/CUMM (130-400); Red Blood Count 3.76 MC/CUMM (3.8-5.5); Red Cell Distribution Width 13.6 % (9.3-17.3); White Blood Count 8.5 T/CUMM (4-12)
[2021-05-28 07:10] LABS: Calcium 8.8 MG/DL (8.5-10.1); Osmolality,Calculated 302.6 MOS/KG (273-304); Potassium 3.9 MMOL/L (3.5-5.1)
[2021-05-28] MEDS: INSULIN LISPRO 100 UNIT/ML SUBCUT SCH ×4 (08:42→22:15)
[2021-05-28] MEDS: ZINC GLUCONATE 50 MG TABLET PO SCH (10:11)
[2021-05-28] MEDS: FAMOTIDINE 20 MG TABLET PO SCH ×2 (10:11→22:25)
[2021-05-28] MEDS: CHOLECALCIFEROL 1,000 UNIT TABLET PO SCH (10:11)
[2021-05-28] MEDS: predniSONE 10 MG TABLET PO SCH (10:11)
[2021-05-28] MEDS: ENOXAPARIN 60 MG/0.6 ML SYRINGE SUBCUT SCH (10:11)
[2021-05-28] MEDS: ASCORBIC ACID 500 MG TABLET PO SCH ×2 (10:12→22:25)
[2021-05-28] MEDS: CETIRIZINE 10 MG TABLET PO SCH (10:12)
[2021-05-28] MEDS: FLUTICASONE 220 MCG/PUFF INHALER 12 GM INH SCH ×2 (10:48→10:49)
[2021-05-29] MEDS: FLUTICASONE 220 MCG/PUFF INHALER 12 GM INH SCH ×4 (01:39→21:08)
[2021-05-29] MEDS: ALBUTEROL INHALER 18 GM INH SCH ×6 (03:30→22:48)
[2021-05-29 05:51] LABS: Eosinophils % 0.2 % (0.00-10.9); Hematocrit 34.6 VOL% (35.7-47.0); Hemoglobin 11.2 GM/DL (12.0-16.0); Immature Granulocytes % 0.7 %; Immature Granulocytes Absolute 0.06 #; Lymphocytes % 11.8 % (21.3-54.2); Mean Corpuscular HGB Conc 32.4 GM/DL (32-36); Mean Corpuscular Volume 93.5 FL (87-102); Mean Platelet Volume 12.5 FL (9.6-12.0); Neutrophils % 75.3 % (38.7-73.9); Platelet Count 102 T/CUMM (130-400); Red Cell Distribution Width 13.2 % (9.3-17.3); White Blood Count 8.6 T/CUMM (4-12)
[2021-05-29] MEDS: LEVOTHYROXINE 125 MCG TABLET PO SCH (06:12)
[2021-05-29] MEDS: DEXTROSE 5% 1,000 ML IV SCH (06:12)
[2021-05-29 06:18] LABS: Albumin 2.3 G/DL (3.4-5.0); Bilirubin,Total 0.8 MG/DL (0.20-1.00); Calcium 8.5 MG/DL (8.5-10.1); Ferritin 1238.6 ng/ml (8-252); Osmolality,Calculated 291.1 MOS/KG (273-304); Potassium 3.8 MMOL/L (3.5-5.1); Total Protein 5.5 G/DL (6.4-8.2)
[2021-05-29] MEDS: CETIRIZINE 10 MG TABLET PO SCH (10:12)
[2021-05-29] MEDS: ASCORBIC ACID 500 MG TABLET PO SCH ×2 (10:12→21:08)
[2021-05-29] MEDS: FAMOTIDINE 20 MG TABLET PO SCH ×2 (10:12→21:08)
[2021-05-29] MEDS: INSULIN LISPRO 100 UNIT/ML SUBCUT SCH ×4 (10:12→21:08)
[2021-05-29] MEDS: CHOLECALCIFEROL 1,000 UNIT TABLET PO SCH (10:12)
[2021-05-29] MEDS: predniSONE 10 MG TABLET PO SCH (10:12)
[2021-05-29] MEDS: ZINC GLUCONATE 50 MG TABLET PO SCH (10:28)
[2021-05-29] MEDS: FUROSEMIDE 40 MG/4 ML VIAL IV SCH (18:20)
[2021-05-30] MEDS: ALBUTEROL INHALER 18 GM INH SCH ×5 (02:50→22:15)
[2021-05-30 06:33] LABS: Basophils % 0.1 % (0.0-0.8); Eosinophils # 0.1 10*3/uL (0.0-0.87); Eosinophils % 1.5 % (0.00-10.9); Hematocrit 32.3 VOL% (35.7-47.0); Hemoglobin 10.3 GM/DL (12.0-16.0); Immature Granulocytes % 1.1 %; Immature Granulocytes Absolute 0.08 #; Lymphocytes # 1.2 10*3/uL (1.4-4.0); Lymphocytes % 15.4 % (21.3-54.2); Mean Corpuscular HGB Conc 31.9 GM/DL (32-36); Mean Corpuscular Volume 93.6 FL (87-102); Mean Platelet Volume 12.2 FL (9.6-12.0); Monocytes % 11.5 % (1.7-12.7); Neutrophils % 70.4 % (38.7-73.9); Red Blood Count 3.45 MC/CUMM (3.8-5.5); Red Cell Distribution Width 13.1 % (9.3-17.3); White Blood Count 7.6 T/CUMM (4-12)
[2021-05-30 06:41] LABS: Platelet Count 93 T/CUMM (130-400)
[2021-05-30] MEDS: LEVOTHYROXINE 125 MCG TABLET PO SCH (06:43)
[2021-05-30 06:52] LABS: Calcium 8.5 MG/DL (8.5-10.1); Ferritin 985.5 ng/ml (8-252); Osmolality,Calculated 284.4 MOS/KG (273-304); Potassium 3.5 MMOL/L (3.5-5.1)
[2021-05-30] MEDS: INSULIN LISPRO 100 UNIT/ML SUBCUT SCH ×4 (08:00→22:15)
[2021-05-30] MEDS: predniSONE 10 MG TABLET PO SCH (09:00)
[2021-05-30] MEDS: FLUTICASONE 220 MCG/PUFF INHALER 12 GM INH SCH ×2 (09:00→21:29)
[2021-05-30] MEDS: ASCORBIC ACID 500 MG TABLET PO SCH ×2 (09:00→21:26)
[2021-05-30] MEDS: FUROSEMIDE 40 MG/4 ML VIAL IV SCH ×2 (09:00→16:00)
[2021-05-30] MEDS: CETIRIZINE 10 MG TABLET PO SCH (09:00)
[2021-05-30] MEDS: ZINC GLUCONATE 50 MG TABLET PO SCH (09:00)
[2021-05-30] MEDS: CHOLECALCIFEROL 1,000 UNIT TABLET PO SCH (09:00)
[2021-05-30] MEDS: FAMOTIDINE 20 MG TABLET PO SCH ×2 (12:00→21:26)
[2021-05-30] MEDS ORDERED: cefTRIAXone 1,000 MG in SODIUM CHLORIDE 0.9% 100 ML IV SCH (13:30)
[2021-05-30] MEDS: DESITIN 4OZ/NYSTATIN 15 GRAM MIXTURE PASTE TOP SCH ×2 (14:58→21:31)
[2021-05-30] MEDS: AZITHROMYCIN 250 MG TABLET PO SCH (15:30)
[2021-05-30 20:13] LABS: Hematocrit 35.6 VOL% (35.7-47.0); Hemoglobin 11.6 GM/DL (12.0-16.0)
[2021-05-31] MEDS: ALBUTEROL INHALER 18 GM INH SCH ×3 (01:06→11:56)
[2021-05-31 05:39] LABS: Basophils % 0.1 % (0.0-0.8); Eosinophils # 0.1 10*3/uL (0.0-0.87); Eosinophils % 0.8 % (0.00-10.9); Hemoglobin 11.1 GM/DL (12.0-16.0); Immature Granulocytes % 0.8 %; Immature Granulocytes Absolute 0.11 #; Lymphocytes # 0.9 10*3/uL (1.4-4.0); Lymphocytes % 6.5 % (21.3-54.2); Mean Corpuscular HGB Conc 32.6 GM/DL (32-36); Mean Corpuscular Volume 90.2 FL (87-102); Mean Platelet Volume 12.9 FL (9.6-12.0); Monocytes % 7.9 % (1.7-12.7); Neutrophils % 83.9 % (38.7-73.9); Platelet Count 78 T/CUMM (130-400); Red Blood Count 3.77 MC/CUMM (3.8-5.5)
[2021-05-31] MEDS: LEVOTHYROXINE 125 MCG TABLET PO SCH (05:42)
[2021-05-31 05:58] LABS: Hypochromasia 1+; Microcytosis 1+
[2021-05-31 05:59] LABS: Ovalocytes Slight; Platelet Estimate Decreased
[2021-05-31 06:07] LABS: Calcium 9.1 MG/DL (8.5-10.1); Osmolality,Calculated 288.3 MOS/KG (273-304); Potassium 3.2 MMOL/L (3.5-5.1)
[2021-05-31] MEDS: INSULIN LISPRO 100 UNIT/ML SUBCUT SCH ×4 (09:48→20:46)
[2021-05-31] MEDS: FAMOTIDINE 20 MG TABLET PO SCH ×2 (10:53→20:47)
[2021-05-31] MEDS: CHOLECALCIFEROL 1,000 UNIT TABLET PO SCH (10:53)
[2021-05-31] MEDS: POTASSIUM CHLORIDE 20 MEQ TABLET PO PRN (10:54)
[2021-05-31] MEDS: ASCORBIC ACID 500 MG TABLET PO SCH ×2 (10:55→20:47)
[2021-05-31] MEDS: ZINC GLUCONATE 50 MG TABLET PO SCH (10:55)
[2021-05-31] MEDS: CETIRIZINE 10 MG TABLET PO SCH (10:56)
[2021-05-31] MEDS: FLUTICASONE 220 MCG/PUFF INHALER 12 GM INH SCH ×2 (10:57→23:23)
[2021-05-31] MEDS: FUROSEMIDE 40 MG/4 ML VIAL IV SCH ×2 (10:59→16:42)
[2021-05-31] MEDS: ALBUTEROL 2.5 MG/3 ML NEB RESP TX SCH ×3 (11:35→19:20)
[2021-05-31] MEDS: predniSONE 10 MG TABLET PO SCH (11:56)
[2021-05-31] MEDS: AZITHROMYCIN 250 MG TABLET PO SCH (11:56)
[2021-05-31] MEDS: DESITIN 4OZ/NYSTATIN 15 GRAM MIXTURE PASTE TOP SCH ×2 (16:00→20:47)
[2021-05-31] MEDS: POTASSIUM BICARB EFFERVESCENT 20 MEQ TAB.EFF PO PRN (20:47)
[2021-06-01] MEDS: POTASSIUM BICARB EFFERVESCENT 20 MEQ TAB.EFF PO PRN ×2 (00:46→03:47)
[2021-06-01] MEDS: ALBUTEROL 2.5 MG/3 ML NEB RESP TX SCH ×6 (02:20→23:50)
[2021-06-01] MEDS: LEVOTHYROXINE 125 MCG TABLET PO SCH (05:54)
[2021-06-01 06:34] LABS: Basophils % 0.2 % (0.0-0.8); Eosinophils # 0.1 10*3/uL (0.0-0.87); Hematocrit 35.8 VOL% (35.7-47.0); Hemoglobin 11.8 GM/DL (12.0-16.0); Immature Granulocytes % 1.5 %; Immature Granulocytes Absolute 0.17 #; Lymphocytes # 0.9 10*3/uL (1.4-4.0); Lymphocytes % 7.5 % (21.3-54.2); Mean Corpuscular Volume 90.6 FL (87-102); Mean Platelet Volume 12.5 FL (9.6-12.0); Monocytes % 10.6 % (1.7-12.7); Neutrophils % 79.2 % (38.7-73.9); Platelet Count 138 T/CUMM (130-400); Red Blood Count 3.95 MC/CUMM (3.8-5.5); Red Cell Distribution Width 13.2 % (9.3-17.3); White Blood Count 11.7 T/CUMM (4-12)
[2021-06-01 07:00] LABS: Calcium 9.7 MG/DL (8.5-10.1); Ferritin 1063.6 ng/ml (8-252); Osmolality,Calculated 287.7 MOS/KG (273-304); Potassium 4.3 MMOL/L (3.5-5.1)
[2021-06-01] MEDS: ASCORBIC ACID 500 MG TABLET PO SCH ×2 (09:22→20:51)
[2021-06-01] MEDS: CHOLECALCIFEROL 1,000 UNIT TABLET PO SCH (09:22)
[2021-06-01] MEDS: FAMOTIDINE 20 MG TABLET PO SCH ×2 (09:22→20:50)
[2021-06-01] MEDS: ZINC GLUCONATE 50 MG TABLET PO SCH (09:22)
[2021-06-01] MEDS: INSULIN LISPRO 100 UNIT/ML SUBCUT SCH ×4 (09:23→22:10)
[2021-06-01] MEDS: predniSONE 20 MG TABLET PO SCH (09:23)
[2021-06-01] MEDS: FLUTICASONE 220 MCG/PUFF INHALER 12 GM INH SCH ×2 (09:24→22:09)
[2021-06-01] MEDS: DESITIN 4OZ/NYSTATIN 15 GRAM MIXTURE PASTE TOP SCH ×2 (09:25→20:51)
[2021-06-01] MEDS: CETIRIZINE 10 MG TABLET PO SCH (11:17)
[2021-06-01] MEDS: TAMSULOSIN 0.4 MG CAPSULE PO SCH (16:44)
[2021-06-02] MEDS: ALBUTEROL 2.5 MG/3 ML NEB RESP TX SCH ×3 (03:16→11:02)
[2021-06-02 05:45] LABS: Basophils % 0.2 % (0.0-0.8); Eosinophils # 0.2 10*3/uL (0.0-0.87); Eosinophils % 1.8 % (0.00-10.9); Hematocrit 33.2 VOL% (35.7-47.0); Hemoglobin 10.5 GM/DL (12.0-16.0); Immature Granulocytes % 1.7 %; Immature Granulocytes Absolute 0.17 #; Lymphocytes # 1.2 10*3/uL (1.4-4.0); Lymphocytes % 11.3 % (21.3-54.2); Mean Corpuscular HGB Conc 31.6 GM/DL (32-36); Mean Corpuscular Volume 93.3 FL (87-102); Mean Platelet Volume 12.8 FL (9.6-12.0); Monocytes % 9.2 % (1.7-12.7); Neutrophils % 75.8 % (38.7-73.9); Platelet Count 122 T/CUMM (130-400); Red Blood Count 3.56 MC/CUMM (3.8-5.5); Red Cell Distribution Width 13.2 % (9.3-17.3); White Blood Count 10.3 T/CUMM (4-12)
[2021-06-02 06:07] LABS: Calcium 9.5 MG/DL (8.5-10.1); Potassium 3.9 MMOL/L (3.5-5.1)
[2021-06-02] MEDS: LEVOTHYROXINE 125 MCG TABLET PO SCH (06:24)
[2021-06-02] MEDS: FAMOTIDINE 20 MG TABLET PO SCH (09:11)
[2021-06-02] MEDS: CHOLECALCIFEROL 1,000 UNIT TABLET PO SCH (09:11)
[2021-06-02] MEDS: predniSONE 20 MG TABLET PO SCH (09:11)
[2021-06-02] MEDS: ZINC GLUCONATE 50 MG TABLET PO SCH (09:11)
[2021-06-02] MEDS: ASCORBIC ACID 500 MG TABLET PO SCH (09:11)
[2021-06-02] MEDS: TAMSULOSIN 0.4 MG CAPSULE PO SCH (09:11)
[2021-06-02] MEDS: CETIRIZINE 10 MG TABLET PO SCH (09:11)
[2021-06-02] MEDS: DESITIN 4OZ/NYSTATIN 15 GRAM MIXTURE PASTE TOP SCH (09:12)
[2021-06-02] MEDS: INSULIN LISPRO 100 UNIT/ML SUBCUT SCH ×2 (09:12→12:52)
[2021-06-02] MEDS: FLUTICASONE 220 MCG/PUFF INHALER 12 GM INH SCH (09:12)
[2021-06-02 12:08] VITALS: BP 129/55
[2021-06-02] MEDS ORDERED: ENOXAPARIN 60 MG/0.6 ML SYRINGE SUBCUT SCH (15:00)
== END 2021-06-02 13:00 | DRG 682 ==
LOC: N.ED 16:49 → SUATTDRO 23:44 → N.EDINP 23:44 → N.2E 05-14 01:15 → N.CC 05-18 00:51 → N.2E 05-26 14:34 → N.5E 05-30 16:54
PROVIDERS: ADMIT Phlebology; ATTEND Internal Medicine